=== PATIENT | male | born 1995 | race Two or more races ===

== ENCOUNTER 2017-03-01 19:02 | Emergency (ER) | payer SELFPAY ==
[~2017-03-01] VITALS: Ht 167.6 cm; Wt 61.2 kg
[2017-03-01 19:06] VITALS: BP 144/85
== END 2017-03-01 21:26 | disposition home or self-care (01) ==
LOC: ER 19:04
DX: S09.8XXA Other specified injuries of head, initial encounter (principal); V49.69XA Unspecified car occupant injured in collision with other motor vehicles in traffic accident, initial encounter; Y93.89 Activity, other specified; Y92.413 State road as the place of occurrence of the external cause; Y99.8 Other external cause status
CPT/HCPCS: 70450-TC; A4606; Z7610